=== PATIENT | male | born 1960 | race Asian ===

== ENCOUNTER 2021-09-09 11:47 | Outpatient (CLI) | payer OTHER ==
[2021-09-09 15:22] LABS: BUN - BLOOD UREA NITROGEN 19 mg/dL (6-20); CALCIUM 9.7 mg/dL (8.5-10.3); CARBON DIOXIDE - CO2 26 mmol/L (21-32); CHLORIDE 103 mmol/L (101-111); CHOL/HDL RATIO 4.8 (<5.0); CHOLESTEROL 222 mg/dL; CREATININE 0.9 mg/dL (0.6-1.2); GFR - MDRD 86 (>89); GLUCOSE 103 mg/dL (70-100); HDL CHOLESTEROL 46 mg/dL; LDL CHOLESTEROL,CALCULATED 122 mg/dL; LDL/HDL RATIO 2.7 (<3.6); SODIUM 137 mmol/L (135-145); TRIGLYCERIDES 268 mg/dL; URIC ACID 8.4 mg/dL (2.6-7.2); VLDL CHOLESTEROL 54 mg/dL
[2021-09-09 21:25] LABS: ESTIMATED AVERAGE GLUCOSE 120 mg/dL (70-100); HEMOGLOBIN A1c% 5.8 % (4.27-6.07)
[2021-09-10 08:10] LABS: HCV AB 0.1 s/co ratio (0.0-0.9)
== END 2021-09-09 11:48 | disposition home or self-care (01) ==
LOC: LAB.S 11:47
PROVIDERS: ATTEND Internal Medicine
DX: M10.9 Gout, unspecified (principal); E78.5 Hyperlipidemia, unspecified; R73.01 Impaired fasting glucose; E55.9 Vitamin D deficiency, unspecified; Z11.59 Encounter for screening for other viral diseases
CPT/HCPCS: 36415; 80048; 80061; 82306; 83036; 83721; 84550; 86803

== ENCOUNTER 2023-04-05 19:42 | Emergency (ER) | payer OTHER ==
[2023-04-05 20:07] VITALS: BP 146/89; O2SAT 98
[2023-04-05] MEDS ORDERED: LIDOCAINE 2%-EPI 1:100000 20 ML MDV ONE (20:32)
[2023-04-05] MEDS: LIDOCAINE 2%-EPI 1:100000 20 ML MDV SUBQ STA (20:37)
[2023-04-05] MEDS: LIDOCAINE 1%-EPI 1:100000 10 ML MDV TD STA (20:38)
--- NOTE | 2023-04-05 21:16 | ED Physician Documentation ---
PD HPI SKIN - Stated complaint Stated Complaint: RT LEG LAC - Chief complaint Chief Complaint: Laceration - Additional information Additional information: 63-year-old male with no pertinent past medical history presents to the emergency department for right tolliver laceration. Patient says the wine bottle fell out of the fridge and shattered onto his right tolliver. Bleeding is well- controlled he is not any blood thinners. The wound does appear to be quite deep will require sutures. PD PAST MEDICAL HISTORY - Past Medical History Past Medical History: Yes Cardiovascular: Hypertension, High cholesterol - Past Surgical History Past Surgical History: No - Present Medications Home Medications: Ambulatory Orders Medication Instructions Recorded Confirmed Atorvastatin [Lipitor] 20 mg PO QPM 04/05/23 04/05/23 Losartan [Cozaar] 50 mg PO DAILY 04/05/23 04/05/23 - Allergies Allergies/Adverse Reactions: Allergies Allergy/AdvReac Type Severity Reaction Status Date / Time No Known Drug Allergies Allergy Verified 04/06/23 07:25 - Social History Does the pt smoke?: No Smoking Status: Never smoker Does the pt drink ETOH?: Yes ETOH Use: Wine, Liquor Does the pt have substance abuse?: No - Immunizations Immunizations: TDAP current <10years - POLST Patient has POLST: No PD ED PE NORMAL - Vitals Vital signs reviewed: Yes - General General: Alert and oriented X 3 - HEENT HEENT: Atraumatic - Derm Derm: Other (Deep laceration to right tolliver.) - Extremities Extremities: No edema, Other (. No paresthesias, right tolliver 9 cm deep laceration bleeding well-controlled no exposure to bone) Results - Vitals Vitals: Vital Signs - 24 hr 04/05/23 19:54 Temperature 36.7 C Heart Rate 77 Respiratory 16 Rate Blood Pressure 146/89 H O2 Saturation 98 Oxygen O2 Source Room air Procedures - Laceration (location) right tolliver Length in cm: 9 Wound type: Curved, Superficial, Into subcut fat, Clean Neurovascular status: Sensory intact, Motor intact Anesthesia: Lidocaine 1% with epi Wound preparation: Irrigated copiously NS, Wound explored Skin layer closure: Nylon, Size #-0 - enter number (4-1), Sutures - enter # (7) Other: Patient tolerated well, No complications, Neurovascular intact, Dressing applied, Tetanus UTD PD Medical Decision Making - ED course ED course: Wound inspected under direct bright light with good visualization. Area with linear laceration across soft tissue through adipose without exposure of muscle belly. No overt foreign body. Area hemostatic. Area extensively irrigated with sterile normal saline under pressure. Laceration repaired in simple fashion With a total of 7 sutures(please see procedure note for further details). Patient tolerated procedure well and neurovascular exam intact and unchanged post repair with intact distal pulses and cap refill. Cautious return precautions discussed w/ full understanding. Wound care discussed. Prompt follow up with primary care physician discussed and return for suture removal in 7-10 days. Departure - Departure Disposition: 01 Home, Self Care Clinical Impression: Leg laceration Qualifiers: Encounter type: initial encounter Laterality: right Qualified Code(s): S81.811A - Laceration without foreign body, right lower leg, initial encounter Condition: Good Instructions: ED Laceration All Comments: Come back for any signs of infection which would include: Redness, swelling, drainage, increased pain, or fevers. You can wash it soap and water. Keep it covered and moist with bacitracin ointment which is available over the counter. Follow-up with your physician in 7-10 days for suture removal. Forms: PCP List
[2023-04-05] MEDS: BACITRACIN ZINC OINT 1 PACKET TOP STA (21:30)
== END 2023-04-05 21:30 | disposition home or self-care (01) ==
LOC: ED 19:42 → MERGE 19:42 → EDBD 19:42 → ED 21:30
DX: S81.811A Laceration without foreign body, right lower leg, initial encounter (principal); W25.XXXA Contact with sharp glass, initial encounter; Y92.000 Kitchen of unspecified non-institutional (private) residence as the place of occurrence of the external cause; I10 Essential (primary) hypertension; E78.00 Pure hypercholesterolemia, unspecified
CPT/HCPCS: 12002; 99281; 99283; A9270